=== PATIENT | female | born 1955 | race Caucasian/White ===

== ENCOUNTER 2017-12-25 10:13 | Day surgery (SDC) | payer OTHER ==
[2017-12-15 19:31] VITALS: BMI 34.6
--- NOTE | 2017-12-22 11:12 | HP ---
Admitting History and Physical - Primary Care Physician PCP: Kirstie Hardy - Admission Chief Complaint: left breast atypia History of Present Illness: 62year old postmenapausal female with routine screenong mammogram showing left retroareolar calcifications and a right upper inner quadrant mass consistent with a lymph node. US showed lymph node but was negative. Stereotactic core biopsy 11/2017 of the calcifications showed atypia. History Source: Patient Limitations to Obtaining History: No Limitations - Past Medical History Pulmonary: Yes: Asthma - Smoking History Smoking history: Never smoked Have you smoked in the past 12 months: No - Alcohol/Substance Use Hx Alcohol Use: No Home Medications - Allergies Allergies/Adverse Reactions: Allergies Allergy/AdvReac Type Severity Reaction Status Date / Time No Known Allergies Allergy Verified 12/15/17 19:02 - Home Medications Home Medications: Ambulatory Orders Albuterol Sulfate [Proair Hfa] 1 each IH PRN 12/15/17 Family Disease History - Family Disease History Family History: Denies Physical Examination Constitutional: Yes: Well Nourished Breast(s): Yes: Other (Diffusely nodular bilaterally no palpable mass or adenopathy bpost biopsy changes left breast) Problem List - Problems (1) Atypical hyperplasia of left breast Code(s): N62 - HYPERTROPHY OF BREAST Assessment/Plan left breast wide excision with mammogram needle localization
[2017-12-25] MEDS ORDERED: ONDANSETRON 4 MG/2 ML VIAL IVPUSH PRN ×2 (13:48→15:51)
[2017-12-25] MEDS ORDERED: KETOROLAC TROMETHAMINE 30 MG/1 ML VIAL IVPUSH PRN (13:48)
[2017-12-25] MEDS ORDERED: DEXTROSE 5%-0.45% SALINE 1,000 ML IV SCH (14:00)
[2017-12-25] MEDS ORDERED: PROPOFOL 20 ML ONE ×2 (14:06)
[2017-12-25] MEDS ORDERED: MIDAZOLAM HCL 2 MG/2 ML SINGLE DOSE VIAL ONE (14:07)
[2017-12-25] MEDS ORDERED: LIDOCAINE HCL 2% JELLY (5 ML/TUBE) ONE (14:07)
[2017-12-25] MEDS ORDERED: GUM MASTIC/STORAX/MSAL/ALCOHOL 1 DRP DROPSBTL MC ONE (14:12)
[2017-12-25] MEDS ORDERED: BUPIVACAINE HCL/PF 0.5% (5MG/ML) 10 ML VIAL ONE (14:12)
[2017-12-25] MEDS ORDERED: DEXAMETHASONE SOD PHOSPHATE 4 MG/1 ML VIAL ONE (14:25)
[2017-12-25] MEDS ORDERED: ceFAZolin SODIUM 1 GM VIAL ONE (14:25)
[2017-12-25] MEDS ORDERED: oxyCODONE HCL 5 MG TABLET PO PRN ×2 (15:51)
[2017-12-25] MEDS ORDERED: PROMETHAZINE HCL 25 MG/1 ML VIAL IVPUSH PRN (15:51)
[2017-12-25] MEDS ORDERED: LACTATED RINGERS SOLUTION 1,000 ML IV SCH (16:00)
--- NOTE | 2017-12-25 17:04 | OP ---
DATE OF OPERATION: 12/25/2017 PREOPERATIVE DIAGNOSIS: Left breast ductal carcinoma in situ. POSTOPERATIVE DIAGNOSIS: Left breast ductal carcinoma in situ. PROCEDURE: Left breast wide excision with needle localization. SURGEON: Kirstie Hardy MD ANESTHESIA: General. ROD MILL OPERATOR: CARMEN Banks SPECIMEN: 1. Left partial mastectomy. 2. Additional margin. 3. Additional margin. 4. Additional margin. 5. Additional margin. 6. Additional margin. 7. Additional margin. COMPLICATIONS: None. DRAINS: None. ESTIMATED BLOOD LOSS: Minimal. INDICATION FOR PROCEDURE: The patient is a 62-year-old woman who had a screening mammogram which showed suspicious left breast calcifications. She was recommended a stereotactic core biopsy which showed atypia. The biopsy was done at another institution. She then came here for another opinion, and a review of the slides showed findings more consistent with DCIS. She was recommended wide excision of the area with needle localization. The procedure, risks, and complications were discussed with her prior to surgery. Her daughter acted as a boat tester. DESCRIPTION OF PROCEDURE: The patient was taken to Breast Imaging where she underwent localization of the clip in the left breast. She was taken to the [facility] area where informed consent was obtained. The left breast was identified with a marker. She was taken to the operating room and placed on the operating table in the supine position. She received antibiotics prior to surgery. She was intubated. The left breast was prepped and draped in the usual fashion. The guidewire could be seen in the left breast at the 9 o'clock position. An incision was made at the medial areolar border. The incision was deepened using electrocautery. The tissue around the needle was mobilized using electrocautery. The mobilization continued around the tip of the needle. The needle was then disassembled, and the specimen was brought into the field. The specimen was further mobilized until it was completely from the breast parenchyma. It was labeled with a short superior stitch and a long lateral stitch. A specimen radiograph showed the clip was in the specimen. The specimen was placed in formalin and sent to Pathology. Additional margins were then taken from the anterior, posterior, medial, lateral, superior, and inferior borders of the biopsy cavity. They were all labeled with a suture at the biopsy cavity side. They were all placed in formalin and sent to Pathology for further evaluation. The wound was irrigated, and areas of bleeding were controlled with electrocautery. The skin was infiltrated with 0.5% Marcaine. The deep tissue was reapproximated with interrupted sutures of 3-0 Vicryl after mobilizing some of the tissue to allow a tension-free closure. The dermis was closed with interrupted sutures of 3-0 Vicryl. The skin was closed with a running subcuticular closure of 4-0 Biosyn. The wound was cleaned and covered with Steri-Strips. A sterile gauze dressing and a surgical bra were then placed. The patient tolerated the procedure well. At the end of the procedure, all sponge and instrument counts were correct. She was awakened and taken to the PACU in satisfactory condition. Rodrick [id number] MTDD
[2017-12-25 17:37] VITALS: TEMP 97.5
[2017-12-25 17:47] VITALS: BP 145/85; PULSE 61
--- NOTE | 2017-12-31 16:54 | PATH ---
Surgical Pathology Report Patient Name: TARA CASTRO [facility]. Rec. #: [id number] /Age/Gender: 1955 (Age: 62) / F Account: [id number] Location[facility] Taken: 12/25/2017 Received: 12/25/2017 Reported: 12/31/2017 Physicians: Kirstie Hardy M.D. Specimen(s) Received A: LEFT BREAST EXCISION B: LEFT BREAST SUPERIOR MARGIN C: LEFT BREAST INFERIOR MARGIN D: LEFT BREAST ANTERIOR MARGIN E: LEFT BREAST POSTERIOR MARGIN F: LEFT BREAST MEDIAL MARGIN G: LEFT BREAST LATERAL MARGIN Clinical History Mammographic findings: Microcalcification Final Diagnosis A. LEFT BREAST, EXCISION: NO RESIDUAL DUCTAL CARCINOMA IN SITU (DCIS). FOCI OF ATYPICAL DUCTAL HYPERPLASIA (ADH) AND INTRADUCTAL PAPILLOMA IDENTIFIED. OTHER FIBROCYSTIC CHANGES INCLUDING USUAL DUCTAL HYPERPLASIA, ADENOSIS, FIBROSIS, AND CALCIFICATIONS ARE PRESENT. PRIOR BIOPSY SITE WITH REACTIVE CHANGES. B. LEFT BREAST, SUPERIOR MARGIN: BREAST TISSUE WITH FIBROSIS. C. LEFT BREAST, INFERIOR MARGIN: BREAST TISSUE WITH USUAL DUCTAL HYPERPLASIA. D. LEFT BREAST, ANTERIOR MARGIN: BREAST TISSUE WITH FIBROSIS. E. LEFT BREAST, POSTERIOR MARGIN: BREAST TISSUE WITH ATYPICAL DUCTAL HYPERPLASIA (ADH), INTRADUCTAL PAPILLOMA, AND USUAL DUCTAL HYPERPLASIA. F. LEFT BREAST, MEDIAL MARGIN: BREAST TISSUE WITH FOCAL ATYPICAL DUCTAL HYPERPLASIA (ADH). G. LEFT BREAST, LATERAL MARGIN: BREAST TISSUE WITH FOCAL ATYPICAL DUCTAL HYPERPLASIA (ADH), FIBROSIS, AND CALCIFICATIONS. Comment: Interdepartmental case reviewed with consensus on diagnosis on December 31, 2017. Electronically Signed Yogesh De La Garza M.D. Gross Description A. Received in formalin, labeled "left breast wide excision," is a 4.5 x 4.3 x 2.1 cm. chambers-yellow, irregular, portion of fibroadipose tissue with a needle localization wire present. There is a short suture marking the superior aspect and a long suture marking the lateral aspect, per the surgeon. There is no skin or nipple present. The specimen is inked as follows: superior and lateral blue; inferior green; medial yellow; anterior red; deep black. The specimen is serially sectioned from superior to inferior. Sectioning reveals a previous biopsy site surrounded by fibrous tissue abutting the superior and anterior margins. The remaining breast parenchyma displays multifocal white fibrous tissue. No definitive mass is identified. Roster Clerk sections are submitted in 10 cassettes as follows: 1-superior margin; 2-previous biopsy site with anterior, deep, lateral and medial margins; 3-8-fibrous tissue sequentially submitted from superior to inferior (each with lateral, anterior and deep margins); 9-inferior margin; 10-medial margin. Time to formalin fixation: 19 minutes Total formalin fixation time: Approximately 27 hours. B. Received in formalin labeled "left breast superior margin," is a 2.0 x 1.1 x 0.4 cm portion of fibroadipose tissue with a suture marking the biopsy cavity side, per the surgeon. The new margin is inked blue and the specimen is serially sectioned. The specimen is entirely submitted in 2 cassettes. C. Received in formalin labeled "left breast inferior margin," is a 4.0 x 2.4 x 0.8 cm portion of fibroadipose tissue with a suture marking the biopsy cavity side, per the surgeon. The new margin is inked blue and the specimen is serially sectioned. The specimen is entirely and sequentially submitted in 5 cassettes. D. Received in formalin labeled "left breast anterior margin," is a 1.7 x 1.2 x 0.7 cm portion of fibroadipose tissue with a suture marking the biopsy cavity side, per the surgeon. The new margin is inked blue and the specimen is serially sectioned. The specimen is entirely submitted in 2 cassettes. E. Received in formalin labeled "left breast posterior margin," is a 1.8 x 1.7 x 0.8 cm portion of fibroadipose tissue with a suture marking the biopsy cavity side, per the surgeon. The new margin is inked blue and the specimen is serially sectioned. The specimen is entirely submitted in 3 cassettes. F. Received in formalin labeled "left breast medial margin," is a 1.5 x 1.0 x 0.4 cm portion of fibroadipose tissue with a suture marking the biopsy cavity side, per the surgeon. The new margin is inked blue and the specimen is serially sectioned. The specimen is entirely submitted in 2 cassettes. G. Received in formalin labeled "left breast lateral margin," is a 2.6 x 1.8 x 1.0 cm portion of fibroadipose tissue with a suture marking the biopsy cavity side, per the surgeon. The new margin is inked blue and the specimen is serially sectioned. The specimen is entirely and sequentially submitted in 4 cassettes. DL/12/26/2017 saudi12/26/2017
== END 2017-12-25 17:30 | disposition home or self-care (01) ==
LOC: FASU 10:13
PROVIDERS: ATTEND Surgery
PROC: 0HBU0ZZ Excision of Left Breast, Open Approach (ICD-10-PCS; principal; 2017-12-25 14:36)
DX: D05.92 Unspecified type of carcinoma in situ of left breast (principal)
CPT/HCPCS: 19281; 88307-TC; 94760